=== PATIENT | male | born 1965 | race Caucasian/White ===

== ENCOUNTER 2020-07-04 16:49 | Observation (INO) | payer OTHER ==
[~2020-07-04] VITALS: Ht 182.9 cm; Wt 121.6 kg
[~2020-07-04 16:49] MED LIST: BAYER CHEWABLE81 MG PO; CRESTOR20 MG PO; FISH OIL 1,0001 CA1 PO; MULTIPLE VITAMI1 TA1 PO; NORVASC10 MG PO; PLAVIX75 MG PO; PROTONIX40 MG PO; ZOCOR20 MG PO
[2020-07-04] MEDS ORDERED: DILTIAZEM 24HR180 M4 PO (17:03)
[2020-07-04] MEDS ORDERED: TESSALON PERLE100 MG PO (17:03)
[2020-07-04] MEDS ORDERED: HCTZ25 MG PO (17:03)
[2020-07-04] MEDS ORDERED: CARDURA2 MG PO (17:04)
[2020-07-04] MEDS ORDERED: MUCINEX600 MG PO (17:12)
[2020-07-04] MEDS ORDERED: PLAVIX75 MG PO (17:13)
[2020-07-04 17:37] VITALS: BP 128/75; BMI 36.4
[2020-07-04 18:06] LABS: BASOPHILS 0.3 % (0-2); HEMOGLOBIN 16.2 g/dL (13.5-17.5); IMMATURE GRANULOCYTES 0.8 % (0-5); LYMPHOCYTE ABS# 4.85 10x3/uL (1.32-3.57); LYMPHOCYTES 26.9 % (15-50); MCHC 34.5 g/dL (31.0-37.0); MEAN PLATELET VOLUME 11.2 fL (7.4-10.4); NEUTROPHIL ABS# 11.54 10x3/uL (1.78-5.38); PLATELET COUNT 196 10x3/uL (130-400); RDW 13.8 % (11.5-14.5)
[2020-07-04 18:34] LABS: ALBUMIN 3.8 g/dL (3.4-5.0); BILIRUBIN - TOTAL 0.4 mg/dL (0.2-1.3); CARBON DIOXIDE 27.9 mmol/L (21.0-32.0); CREATININE - SERUM 1.2 mg/dL (0.6-1.3); POTASSIUM - SERUM 3.9 mmol/L (3.5-5.1); PROTEIN - SERUM 6.6 g/dL (6.4-8.2)
[2020-07-04 18:37] LABS: CKMB 3.3 U/L (0.0-3.6); CREATINE KINASE 628 UL (21-232); TROPONIN-I < 0.017 ng/mL (0.000-0.060)
--- NOTE | 2020-07-04 19:48 | NUR ---
RECIEVED UP IN BED WITH EYES OPEN AND SPOUSE AT BEDSIDE. ALERT AND ORIENTED X4. UP AD BLADE TO B/R. O2@ 2 LITERS PER N/C. IV TO LT AC INFUSING NS AT 75CC/HR. IV TO RT HAND SL. TELEMETRY IN PLACE. DENIES ANY NEEDS AT THIS TIME.
[2020-07-04 20:22] VITALS: BP 141/76
[2020-07-04 20:40] LABS: ERYTHROCYTE SEDIMENTATION RATE 3 mm/hr (0-20)
[2020-07-04 23:07] VITALS: BP 119/61
[2020-07-05 00:26] LABS: CKMB 2.3 U/L (0.0-3.6); CREATINE KINASE 513 UL (21-232)
[2020-07-05 00:28] LABS: TROPONIN-I < 0.017 ng/mL (0.000-0.060)
[2020-07-05 06:06] LABS: CKMB 2.6 U/L (0.0-3.6); CREATINE KINASE 562 UL (21-232)
[2020-07-05 06:07] LABS: TROPONIN-I < 0.017 ng/mL (0.000-0.060)
--- NOTE | 2020-07-05 06:43 | NUR ---
REFUSED SOLU MEDROL THIS AM. SAID IT MADE HIM JITTERY AND VERY THIRSTY. EXPLAINED HE COULD HAVE ANOTHER ATIVAN IF HE NEEDED IT. CONTINUES TO REFUSE. WASTED SOLU MEDROL.
[2020-07-05 07:39] VITALS: BP 121/76
[2020-07-05 11:54] VITALS: BP 101/58
[2020-07-05 12:18] VITALS: Ht 182.9 cm; Wt 121.6 kg
[2020-07-05] MEDS ORDERED: COMBIVENT RESPIM4 GM INH (15:37)
[2020-07-05] MEDS ORDERED: PREDNISONE10 MG PO (15:37)
[2020-07-05 15:49] VITALS: BP 117/53
--- NOTE | 2020-07-05 16:37 | NUR ---
IV AND TELEMETRY DCD. DC PLANS GIVEN. UNDERSTANDING VOICED. ESCORTED TO CAR BY W/C.
== END 2020-07-05 16:39 | disposition home or self-care (01) ==
LOC: D.M2 16:49 → OBSVTIME 16:49 → D.M2 16:49 → OBSVTIME 07-05 14:30 → D.M2 07-05 16:39
PROVIDERS: ADMIT Family Medicine; ATTEND Family Medicine
DX: I25.110 Atherosclerotic heart disease of native coronary artery with unstable angina pectoris (principal); J44.1 Chronic obstructive pulmonary disease with (acute) exacerbation; F17.203 Nicotine dependence unspecified, with withdrawal; D72.829 Elevated white blood cell count, unspecified; R74.01 Elevation of levels of liver transaminase levels; E78.5 Hyperlipidemia, unspecified; I10 Essential (primary) hypertension; K21.9 Gastro-esophageal reflux disease without esophagitis; E66.9 Obesity, unspecified; Z68.36 Body mass index [BMI] 36.0-36.9, adult

== ENCOUNTER → 2020-07-06 07:43 | Outpatient (CLI) | payer OTHER ==
[2020-07-05 12:18] VITALS: BMI 36.3
[~2020-07-06 07:43] MED LIST changes: +CARDURA2 MG PO; +COMBIVENT RESPIM4 GM INH; +DILTIAZEM 24HR180 M4 PO; +HCTZ25 MG PO; +MUCINEX600 MG PO; +PREDNISONE10 MG PO; +TESSALON PERLE100 MG PO
== END | disposition home or self-care (01) ==
LOC: D.RAD 07:43
PROVIDERS: ATTEND Otolaryngology
DX: R13.10 Dysphagia, unspecified (principal)